=== PATIENT | male | born 1985 | race Two or more races ===

== ENCOUNTER 2024-03-19 23:57 | Emergency (ER) | payer MEDICARE, MEDICAID ==
[~2024-03-19] VITALS: Ht 172.7 cm; Wt 90.9 kg
[2024-03-20] VITALS: BP 134/89; PULSE 95; RESP 18; TEMP 98.5
[2024-03-20 00:14] LABS: COVID AG,FIA SOURCE NASAL SWAB
[2024-03-20 00:32] LABS: INFLUENZA TYPE A NEGATIVE FOR TYPE A (NEGATIVE); INFLUENZA TYPE B NEGATIVE FOR TYPE B (NEGATIVE); SARS-COV2 (COVID) ANTIGEN,FIA Negative (Negative)
[2024-03-20 00:35] LABS: BASOPHILS % (AUTO) 0.9 % (0.0-2.0); EOSINOPHILS % (AUTO) 5.4 % (1.0-6.0); HEMATOCRIT 51.3 % (41-53); HEMOGLOBIN 17.5 g/dL (13.5-17.5); LYMPHOCYTES # (AUTO) 2.2 K/uL (1.0-4.8); LYMPHOCYTES % (AUTO) 23.6 % (22.0-44.0); MEAN CORPUSCULAR HEMOGLOBIN 30.2 pg (26.0-34.0); MEAN CORPUSCULAR VOLUME 89 fL (80-100); MONOCYTES # (AUTO) 0.8 K/uL (0.1-1.0); MONOCYTES % (AUTO) 8.9 % (2.0-9.0); NEUTROPHILS # (AUTO) 5.8 K/uL (1.8-7.7); NEUTROPHILS % (AUTO) 61.2 % (40.0-70.0); PLATELET COUNT (AUTO) 293 K/uL (150-450); RED BLOOD CELL COUNT(AUTO) 5.79 MIL/uL (4.50-5.90); RED CELL DISTRIBUTION WIDTH 13.8 % (11.5-14.5); WHITE BLOOD COUNT (AUTO) 9.4 K/uL (4.5-11.0)
[2024-03-20 00:36] LABS: RAPID GROUP A STREP NEGATIVE (NEGATIVE)
[2024-03-20 00:39] LABS: CALCIUM, TOTAL 8.7 mg/dL (8.8-10.5); CREATININE 1.37 mg/dL (0.60-1.30)
[2024-03-20] MEDS ORDERED: POTA-364 PO (01:14)
[2024-03-20] MEDS ORDERED: ONDA-104 PO (01:14)
[2024-03-20] MEDS: ONDANSETRON HCL 4 MG TABLET PO ONE (01:44)
[2024-03-20] MEDS: POTASSIUM CHLORIDE 20 MEQ ER TABLET PO ONE (01:44)
== END 2024-03-20 02:00 | disposition home or self-care (01) ==
LOC: EMS 23:57
DX: A08.4 Viral intestinal infection, unspecified (principal); E87.6 Hypokalemia; Z20.822 Contact with and (suspected) exposure to COVID-19
CPT/HCPCS: 99283; 87426; 80048; 85025; 87430; 87804; 36415; Q0162